=== PATIENT | female | born 1975 | race Hispanic/Latino ===

== ENCOUNTER 2022-01-16 21:55 | Emergency (ER) | payer OTHER ==
[~2022-01-16] VITALS: Ht 165.1 cm; Wt 96.6 kg
[2022-01-16] MEDS ORDERED: ONDANSETRON HCL INJ 2MG/ML 2ML 2 MG/ML VIAL IV STA (22:43)
[2022-01-16] MEDS ORDERED: Morphine 4mg Syringe 4 MG/ML INJ IV ONE (22:45)
[2022-01-16] MEDS ORDERED: ONDANSETRON HCL INJ 2MG/ML 2ML 2 MG/ML VIAL ONE (23:07)
[2022-01-16] MEDS ORDERED: Morphine 4mg Syringe 4 MG/ML INJ ONE (23:07)
[2022-01-17] MEDS ORDERED: ONDANSETRON ODT4 MG PO (00:58)
== END 2022-01-17 01:31 | disposition home or self-care (01) ==
LOC: FSED 22:32
DX: R10.9 Unspecified abdominal pain (principal); R11.2 Nausea with vomiting, unspecified; K76.0 Fatty (change of) liver, not elsewhere classified
CPT/HCPCS: 74176; 80048; 80076; 85025; 99284; J2270; J2405